=== PATIENT | male | born 1945 | race Caucasian/White ===

== ENCOUNTER 2019-10-16 11:28 | Inpatient (IN) | payer OTHER, MEDICARE ==
[2019-10-16 11:43] LABS: ABSOLUTE BASOPHILS # (AUTO) 0.1 10^3/uL (0.0-0.2); ABSOLUTE EOSINOPHILS # (AUTO) 0.1 10^3/uL (0.0-0.6); ABSOLUTE LYMPHOCYTES (AUTO) 1.6 10^3/uL (0.5-4.7); ABSOLUTE MONOCYTES (AUTO) 1.4 10^3/uL (0.1-1.4); ABSOLUTE NEUT (AUTO) 8.2 10^3/uL (1.7-8.2); BASOPHILS % (AUTO) 0.5 % (0-2); EOSINOPHILS % (AUTO) 0.7 % (0-6); HEMATOCRIT 37.5 % (37.9-51.0); HEMOGLOBIN 12.2 g/dL (13.5-17.0); LYMPHOCYTES % (AUTO) 14.3 % (13-45); MEAN CORPUSCULAR HEMOGLOBIN 30.3 pg (27.0-33.4); MEAN CORPUSCULAR HGB CONC 32.5 g/dL (32.0-36.0); MEAN CORPUSCULAR VOLUME 93 fl (80-97); MONOCYTES % (AUTO) 12.1 % (3-13); PLATELET COUNT 225 10^3/uL (150-450); RED BLOOD COUNT 4.03 10^6/uL (4.35-5.55); SEGMENTED NEUTROPHILS % (AUTO) 72.4 % (42-78); TOTAL CELLS COUNTED % (AUTO) 100 %; WHITE BLOOD COUNT 11.4 10^3/uL (4.0-10.5)
[2019-10-16 12:05] LABS: ALBUMIN 3.8 g/dL (3.5-5.0); ALKALINE PHOSPHATASE 57 U/L (38-126); ANION GAP 8 (5-19); ASPARTATE AMINO TRANSFERASE 27 U/L (17-59); BILIRUBIN,DIRECT 0.1 mg/dL (0.0-0.4); BILIRUBIN,TOTAL 1.1 mg/dL (0.2-1.3); BLOOD UREA NITROGEN 22 mg/dL (7-20); CALCIUM 8.9 mg/dL (8.4-10.2); CARBON DIOXIDE 30 mmol/L (22-30); CHLORIDE 104 mmol/L (98-107); GLUCOSE 113 mg/dL (75-110); TOTAL PROTEIN 6.5 g/dL (6.3-8.2)
--- NOTE | 2019-10-16 12:17 | RADIOLOGY REPORT (SQ) ---
EXAM DESCRIPTION: CHEST SINGLE VIEW COMPLETED DATE/TIME: 10/16/2019 12:05 pm REASON FOR STUDY: shortness of breath COMPARISON: None. NUMBER OF VIEWS: One view. TECHNIQUE: Single frontal radiographic view of the chest acquired. LIMITATIONS: None. FINDINGS: LUNGS AND PLEURA: Coarse parenchymal markings throughout the bibasilar lung deleon. The a ppearance is potentially chronic and related to scar/ fibrosis. Correlate with clinical history. Th is is not a typical appearance for interstitial edema. MEDIASTINUM AND HILAR STRUCTURES: No masses. Contour normal. HEART AND VASCULAR STRUCTURES: Heart size looks normal. Slight prominence of the central pulmonary v ascularity. BONES: No acute findings. HARDWARE: None in the chest. OTHER: No other significant finding. IMPRESSION: 1. Chronic interspace crash that interstitial basilar changes may be chronic. Doubt interstitial prerna ma, although there is mild central vascular congestion additionally noted. TECHNICAL DOCUMENTATION: JOB ID: [id number] [employer]- All Rights Reserved Reading location - IP/workstation name: [email or web address]
[2019-10-16 13:41] LABS: CREATINE KINASE 51 U/L (55-170)
--- NOTE | 2019-10-16 14:21 | ER Document Report ---
Entered by EVANGELINA WILSON SCRIBE 10/16/19 1334 Acting as scribe for:VLADISLAV ARREGUIN MD ED Respiratory Problem - General Chief Complaint: Shortness Of Breath Stated Complaint: SHORTNESS OF BREATH Time Seen by Provider: 10/16/19 13:17 Primary Care Provider: YOSI CACERES PA-C [Primary Care Provider] - Follow up as needed Mode of Arrival: Ambulatory Information source: Patient Notes: This 74 year old male patient presents to the emergency department today with complaints of shortness of breath. Patient states that his shortness of breath occurred abruptly a few days ago when he was in the shower. Patient states since that day his shortness of breath has become worse, stating that now with any exertion he becomes short of breath and his shortness of breath becomes manageable if he remains at rest. Patient uses 2 L nasal cannula at bedtime. The patient's medications are metoprolol, pravastatin, indapamide, citalopram, allopurinol, Xarelto, Trelegy and albuterol. He ran out of his indapamide several days ago. His most recent medication shipment from the [place] did not include his indapamide. He has not been to the [facility] clinic to correct this problem. TRAVEL OUTSIDE OF THE [place] IN LAST 30 DAYS: No - Related Data Allergies/Adverse Reactions: No Known Allergies Allergy (Verified 10/16/19 14:10) Past Medical History - General Information source: Patient - Social History Smoking Status: Unknown if Ever Smoked Cigarette use (# per day): No Frequency of alcohol use: None Drug Abuse: None Lives with: Family Family History: Reviewed & Not Pertinent Patient has suicidal ideation: No Patient has homicidal ideation: No - Past Medical History Cardiac Medical History: Reports: Hx Atrial Fibrillation, Hx Hypercholesterolemia, Hx Hypertension Pulmonary Medical History: Reports: Hx COPD Surgical Hx: Negative Review of Systems - Review of Systems Constitutional: No symptoms reported EENT: No symptoms reported Cardiovascular: No symptoms reported Respiratory: See HPI, Short of breath Gastrointestinal: No symptoms reported Genitourinary: No symptoms reported Male Genitourinary: No symptoms reported Musculoskeletal: No symptoms reported Skin: No symptoms reported Hematologic/Lymphatic: No symptoms reported Neurological/Psychological: No symptoms reported -: Yes All other systems reviewed and negative Physical Exam - Vital signs Vitals: Pulse Ox 96 10/16/19 11:41 Interpretation: Normal - General General appearance: Appears well, Alert - HEENT Head: Normocephalic, Atraumatic Eyes: Normal Pupils: PERRL - Respiratory Respiratory status: Respiratory distress Breath sounds: Other - coarse breath sounds bilaterally - Cardiovascular Rhythm: Regular Heart sounds: Normal auscultation Murmur: No - Abdominal Inspection: Normal Distension: No distension Bowel sounds: Normal Tenderness: Nontender Organomegaly: No organomegaly - Back Back: Normal, Nontender - Extremities General upper extremity: Normal inspection, Normal ROM. No: Edema General lower extremity: Normal inspection, Normal ROM. No: Edema - Neurological Neuro grossly intact: Yes Cognition: Normal Orientation: AAOx4 Candace Coma Scale Eye Opening: Spontaneous Candace Coma Scale Verbal: Oriented Candace Coma Scale Motor: Obeys Commands Candace Coma Scale Total: 15 Speech: Normal Sensory: Normal - Psychological Associated symptoms: Normal affect, Normal mood - Skin Skin Temperature: Warm Skin Moisture: Dry Skin Color: Normal Course - Re-evaluation Re-evalutation: 10/16/19 17:44 At this point the patient has urinated 600 mL's. He is still somewhat dyspneic. His oxygen is on 3 L, and his O2 sat dropped to 90% with him trying to reposition himself on the stretcher. His heart rate also increased to 1 30-1 35 with minimal exertion. He is in atrial fibrillation. - Vital Signs Vital signs: Temp Pulse Resp BP Pulse Ox 98.3 F 15 128/85 H 99 10/16/19 11:59 10/16/19 14:01 10/16/19 14:01 10/16/19 14:01 - Laboratory Result Diagrams: 10/16/19 11:00 10/16/19 11:00 Laboratory results interpreted by me: 10/16/19 10/16/19 10/16/19 11:00 11:00 11:00 WBC 11.4 H RBC 4.03 L Hgb 12.2 L Hct 37.5 L RDW 15.0 H D-Dimer BUN 22 H Glucose 113 H Creatine Kinase 51 L NT-Pro-B Natriuret Pep Urine Protein Urine Ketones Urine Urobilinogen Urine Ascorbic Acid 10/16/19 10/16/19 10/16/19 11:00 11:00 15:10 WBC RBC Hgb Hct RDW D-Dimer 0.98 H BUN Glucose Creatine Kinase NT-Pro-B Natriuret Pep 4370 H Urine Protein 30 H Urine Ketones TRACE H Urine Urobilinogen 2.0 H Urine Ascorbic Acid 40 H - Diagnostic Test Radiology reviewed: Image reviewed, Reports reviewed - CTA chest shows chronic lung changes with COPD and scarring. Superimposed congestive heart failure with small effusions with contrast refluxing into the upper abdominal veins suggesting right heart dysfunction. - EKG Interpretation by Me EKG shows normal: [place], Intervals, QRS Complexes. abnormal: ST-T Waves - Nonspecific anterior T abnormalities Rate: Normal - 90 Rhythm: A.Fib Voltage: Decreased voltage - Consults Dr. Rinaldi Time consulted: 17:55 Consulted provider: will come to ER Critical Care Note - Critical Care Note Total time excluding time spent on procedures (mins): 35 Discharge - Discharge Clinical Impression: Chronic atrial fibrillation, unspecified, Has run out of medications Congestive heart failure Qualifiers: Heart failure type: unspecified Heart failure chronicity: acute Qualified Code(s): I50.9 - Heart failure, unspecified COPD (chronic obstructive pulmonary disease) Qualifiers: COPD type: unspecified COPD Qualified Code(s): J44.9 - Chronic obstructive pulmonary disease, unspecified Condition: Good Disposition: ADMITTED INPATIENT Admitting Provider: [facility] (Hospitalist) Unit Admitted: Telemetry Referrals: YOSI CACERES PA-C [Primary Care Provider] - Follow up as needed Scribe Attestation: 10/16/19 18:00 I personally performed the services described in the documentation, reviewed and edited the documentation which was dictated to the scribe in my presence, and it accurately records my words and actions. I personally performed the services described in the documentation, reviewed and edited the documentation which was dictated to the scribe in my presence, and it accurately records my words and actions.
[2019-10-16 15:37] LABS: APPEARANCE,URINE SLIGHTLY-CLOUDY; BILIRUBIN,URINE NEGATIVE (NEGATIVE); COLOR,URINE AMBER; GLUCOSE, URINE NEGATIVE (NEGATIVE); KETONES,URINE TRACE mg/dL (NEGATIVE); LEUKOCYTE ESTERASE,URINE NEGATIVE (NEGATIVE); NITRITE,URINE NEGATIVE (NEGATIVE); PROTEIN,URINE 30 mg/dL (NEGATIVE); URINE SPECIFIC GRAVITY 1.031
--- NOTE | 2019-10-16 16:07 | RADIOLOGY REPORT (SQ) ---
EXAM DESCRIPTION: CTA CHEST COMPLETED DATE/TIME: 10/16/2019 3:55 pm REASON FOR STUDY: Dyspnea, elevated d-dimer COMPARISON: Portable radiograph from earlier. TECHNIQUE: CT scan of the chest performed using helical scanning technique with dynamic intravenous contrast injection. Images reviewed with lung, soft tissue and bone windows. Reconstructed coronal and sagittal MPR images reviewed. Additional 3 dimensional post-processing performed to develop Maximal Intensity Projection images (AZ P). All images stored on PACS. All CT scanners at this facility use dose modulation, iterative reconstruction, and/or weight based d osing when appropriate to reduce radiation dose to as low as reasonably achievable (ALARA). [facility]: Dose Right [facility]: CareDose [facility]: Dose Right [facility]: Teradose 4D [facility]: Preventes.fr CONTRAST TYPE AND DOSE: contrast/concentration: Isovue 350.00 mg/ml; Total Contrast Delivered: 65.0 ml; Total Saline Delivered: 80.0 ml Contrast bolus optimized for the pulmonary arteries. Not diagnostic for the aorta. RENAL FUNCTION: GFR > 60. RADIATION DOSE: CT Rad equipment meets quality standard of care and radiation dose reduction techniq ues were employed. CTDIvol: 20.5 - 26.4 mGy. DLP: 771 mGy-cm. . LIMITATIONS: None. 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 Bilateral small simple appear ing pleural effusions, these were not evident on single-view portable chest. AORTA AND GREAT VESSELS: Sub optimal assessment of the aorta. No gross aneurysm. HEART: No pericardial effusion. Heavy coronary calcification. PULMONARY ARTERIES: No emboli visualized in the main pulmonary arteries or the segmental branches. HILAR AND MEDIASTINAL STRUCTURES: Small nodes without enlargement. HARDWARE: None in the chest. UPPER ABDOMEN: Slight reflux of contrast into hepatic veins and IVC suggestive of right heart dysfunc tion. THYROID AND OTHER SOFT TISSUES: No masses. No adenopathy. BONES: No acute or significant finding. 3D MIPS: Confirm above findings. OTHER: No other significant finding. IMPRESSION: 1. No pulmonary embolus. 2. Chronic lung changes including COPD and scarring. 3. Superimposed congestive failure. Small effusions with contrast refluxing into the upper abdominal veins. COMMENT: Quality ID # [id number]: Final reports with documentation of one or more dose reduction techniques (e.g., Automated exposure control, adjustment of the mA and/or kV according to patient size, use of iterative reconstruction technique) TECHNICAL DOCUMENTATION: JOB ID: [id number] 2010 [employer]- All Rights Reserved Reading location - IP/workstation name: [email or web address]
[2019-10-16] MEDS ORDERED: FUROSEMIDE INJ/PF 40 MG/4 ML SDV IV ONE (16:28)
[2019-10-16] MEDS ORDERED: IPRATROPIUM/ALBUTEROL 0.5-2.5 MG/3 ML AMPUL NEB ONE (16:28)
--- NOTE | 2019-10-16 18:03 | EKG REPORT ---
SEVERITY:- ABNORMAL ECG - ATRIAL FIBRILLATION WITH RAPID V-RATE PAIRED VENTRICULAR PREMATURE COMPLEXES LOW VOLTAGE IN FRONTAL LEADS NONSPECIFIC T ABNORMALITIES, ANTERIOR LEADS : Confirmed by: Js Caicedo MD 16-Oct-2019 18:03:01
[2019-10-16] MEDS ORDERED: METOPROLOL TARTRATE PF/INJ 5 MG/5 ML SDV IV ONE (18:33)
[2019-10-16] MEDS ORDERED: METOPROLOL TARTRATE PF/INJ 5 MG/5 ML SDV IV PRN (18:33)
[2019-10-16] MEDS ORDERED: METOPROLOL TARTRATE 25 MG TABLET PO ONE (18:35)
[2019-10-16] MEDS ORDERED: LEVALBUTEROL HCL NEB 0.63 MG/3 ML AMPUL NEB PRN (18:40)
--- NOTE | 2019-10-16 18:55 | PDOC H&P ---
History of Present Illness Admission Date/PCP: 10/16/19 18:07 YOSI CACERES PA-C Patient complains of: Progressive dyspnea on exertion History of Present Illness: RENETTA ANNE is a 74 year old male with a History of COPD on nocturnal 2 L nasal cannula, atrial fibrillation, hypertension, hyperlipidemia, gout, who presents to the hospital with complaints of progressive shortness of breath for the past several days. Symptoms started about 3 days ago. Patient's exercise tolerance has reduced to in between rooms in his apartment. Patient denies any swelling in his lower extremities. He does admit to orthopnea. Denies PND. Denies fever chills or any recent upper respiratory tract infection. He denies noticing any wheezing. Patient did states that he was taking indapamide which he ran out of. Patient denies any prior history of congestive heart failure. Also denies any complaints of chest pain. Typically uses oxygen only nocturnally but noted to be hypoxic on 2 L in the ER. Past Medical History Cardiac Medical History: Reports: Atrial Fibrillation, Hyperlipidema, Hypertension Pulmonary Medical History: Reports: Chronic Obstructive Pulmonary Disease (COPD) Past Surgical History Past Surgical History: Reports: Other Social History Information Source: Patient Lives with: Family Smoking Status: Former Smoker Frequency of Alcohol Use: None Hx Recreational Drug Use: No Hx Prescription Drug Abuse: No - Advance Directive Resuscitation Status: Do Not Resuscitate - DNR/DNI per patient Family History Family History: COPD Parental Family History Reviewed: Yes Children Family History Reviewed: NA Sibling(s) Family History Reviewed.: Yes Medication/Allergy Allergies/Adverse Reactions: No Known Allergies Allergy (Verified 10/16/19 14:10) Review of Systems Constitutional: PRESENT: anorexia. ABSENT: chills, fatigue, fever(s) Eyes: ABSENT: visual disturbances Cardiovascular: PRESENT: dyspnea on exertion. ABSENT: chest pain Respiratory: PRESENT: dyspnea Gastrointestinal: ABSENT: abdominal pain, nausea, vomiting Genitourinary: ABSENT: dysuria Integumentary: ABSENT: diaphoresis Neurological: ABSENT: confusion Psychiatric: ABSENT: anxiety Endocrine: ABSENT: polyuria Allergic/Immunologic: ABSENT: seasonal rhinorrhea Physical Exam Vital Signs: Temp Pulse Resp BP Pulse Ox 98.3 F 15 128/85 H 99 10/16/19 11:59 10/16/19 14:01 10/16/19 14:01 10/16/19 14:01 Intake & Output 10/15/19 10/16/19 10/17/19 06:59 06:59 06:59 Output Total 600 Balance -600 Weight 91.2 kg General appearance: PRESENT: no acute distress, cooperative Head exam: PRESENT: normocephalic Mouth exam: PRESENT: neck supple Neck exam: PRESENT: JVD Respiratory exam: PRESENT: decreased breath sounds - at lung base, symmetrical, unlabored, wheezes - Mild. ABSENT: tachypnea Cardiovascular exam: PRESENT: irregular rhythm, +S1, +S2, tachycardia GI/Abdominal exam: PRESENT: normal bowel sounds, soft. ABSENT: rebound, rigid, tenderness Extremities exam: PRESENT: pedal edema - Trace pedal edema Musculoskeletal exam: PRESENT: ambulatory Neurological exam: PRESENT: alert, awake, oriented to person, oriented to place, oriented to time, oriented to situation Psychiatric exam: ABSENT: agitated, anxious Results Laboratory Results: 10/16/19 11:00 10/16/19 11:00 10/16/19 10/16/19 10/16/19 11:00 11:00 15:10 WBC 11.4 H RBC 4.03 L Hgb 12.2 L Hct 37.5 L MCV 93 MCH 30.3 MCHC 32.5 RDW 15.0 H Plt Count 225 Seg Neutrophils % 72.4 Sodium 142.3 Potassium 4.0 Chloride 104 Carbon Dioxide 30 Anion Gap 8 BUN 22 H Creatinine 0.71 Est GFR ( Amer) > 60 Glucose 113 H Calcium 8.9 Total Bilirubin 1.1 AST 27 Alkaline Phosphatase 57 Total Protein 6.5 Albumin 3.8 Urine Color JESS Urine Appearance SLIGHTLY-CLOUDY Urine pH 5.0 Ur Specific Hooper 1.031 Urine Protein 30 H Urine Glucose (UA) NEGATIVE Urine Ketones TRACE H Urine Blood NEGATIVE Urine Nitrite NEGATIVE Ur Leukocyte Esterase NEGATIVE Urine WBC (Auto) 4 Urine RBC (Auto) 1 10/16/19 10/16/19 10/16/19 11:00 11:00 11:00 Creatine Kinase 51 L Troponin I < 0.012 NT-Pro-B Natriuret Pep 4370 H Impressions: Chest X-Ray 10/16/19 11:30 IMPRESSION: 1. Chronic interspace crash that interstitial basilar changes may be chronic. Doubt interstitial edema, although there is mild central vascular congestion additionally noted. Chest/Abdomen CTA 10/16/19 14:22 IMPRESSION: 1. No pulmonary embolus. 2. Chronic lung changes including COPD and scarring. 3. Superimposed congestive failure. Small effusions with contrast refluxing into the upper abdominal veins. Assessment and Plan - Diagnosis (1) Acute congestive heart failure Qualifiers: Heart failure type: right-sided Qualified Code(s): I50.811 - Acute right heart failure Is this a current diagnosis for this admission?: Yes Plan: New diagnosis of acute congestive heart failure. Suspect right-sided failure which was also noted on CT findings. CTA also shows bilateral effusions. Diuresis with Lasix 40 mg IV twice daily. Check echocardiogram. Strict I's and O's and fluid restriction. (2) Chronic atrial fibrillation with rapid ventricular response Is this a current diagnosis for this admission?: Yes Plan: We will give Lopressor IV and p.o. right now given elevated heart rate. Will be cautious with the beta-blockers given his right failure. Continue Xarelto. Patient states that he takes Lopressor 10 mg 3 times a day at home. (3) COPD (chronic obstructive pulmonary disease) Qualifiers: COPD type: unspecified COPD Qualified Code(s): J44.9 - Chronic obstructive pulmonary disease, unspecified Is this a current diagnosis for this admission?: Yes Plan: Currently not in exacerbation but does have mild wheezing. Will give nebulizer treatments. Continue Trelegy. (4) Obesity (BMI 30.0-34.9) Is this a current diagnosis for this admission?: Yes - Time Time Spent with patient: 35 or more minutes
[2019-10-16] MEDS ORDERED: FLUTICASONE/UMECLIDIN/VILANTER 100-62.5-25 MCG/DOSE IH ONE (19:30)
[2019-10-16] MEDS ORDERED: RIVAROXABAN 10 MG TABLET PO ONE (19:30)
[2019-10-16] MEDS: LEVALBUTEROL HCL NEB 1.25 MG/3 ML AMPUL NEB SCH (20:39)
[2019-10-16] MEDS: SIMVASTATIN 40 MG TABLET PO SCH (21:40)
[2019-10-16] MEDS: METOPROLOL TARTRATE 25 MG TABLET PO SCH (21:41)
[2019-10-16] MEDS: POTASSIUM CHLORIDE 10 MEQ TABLET.ER PO SCH (21:41)
[2019-10-17 05:23] LABS: ABSOLUTE BASOPHILS # (AUTO) 0.1 10^3/uL (0.0-0.2); ABSOLUTE EOSINOPHILS # (AUTO) 0.3 10^3/uL (0.0-0.6); ABSOLUTE LYMPHOCYTES (AUTO) 1.7 10^3/uL (0.5-4.7); ABSOLUTE MONOCYTES (AUTO) 1.1 10^3/uL (0.1-1.4); ABSOLUTE NEUT (AUTO) 5.5 10^3/uL (1.7-8.2); BASOPHILS % (AUTO) 0.7 % (0-2); EOSINOPHILS % (AUTO) 3.7 % (0-6); HEMATOCRIT 35.7 % (37.9-51.0); HEMOGLOBIN 11.7 g/dL (13.5-17.0); LYMPHOCYTES % (AUTO) 19.3 % (13-45); MEAN CORPUSCULAR HEMOGLOBIN 30.5 pg (27.0-33.4); MEAN CORPUSCULAR HGB CONC 32.9 g/dL (32.0-36.0); MEAN CORPUSCULAR VOLUME 93 fl (80-97); MONOCYTES % (AUTO) 13.2 % (3-13); PLATELET COUNT 203 10^3/uL (150-450); RED BLOOD COUNT 3.85 10^6/uL (4.35-5.55); RED CELL DISTRIBUTION WIDTH 15.1 % (11.5-14.0); SEGMENTED NEUTROPHILS % (AUTO) 63.1 % (42-78); TOTAL CELLS COUNTED % (AUTO) 100 %; WHITE BLOOD COUNT 8.7 10^3/uL (4.0-10.5)
[2019-10-17] MEDS: METOPROLOL TARTRATE 25 MG TABLET PO SCH ×3 (05:33→21:33)
[2019-10-17] MEDS: LEVALBUTEROL HCL NEB 1.25 MG/3 ML AMPUL NEB SCH ×3 (07:30→20:23)
[2019-10-17] MEDS: ALLOPURINOL 300 MG TABLET PO SCH (10:42)
[2019-10-17] MEDS: POTASSIUM CHLORIDE 10 MEQ TABLET.ER PO SCH ×2 (10:42→21:33)
[2019-10-17] MEDS: CITALOPRAM HYDROBROMIDE 20 MG TABLET PO SCH (10:42)
[2019-10-17] MEDS: FUROSEMIDE INJ/PF 40 MG/4 ML SDV IV SCH ×2 (10:43→18:41)
[2019-10-17] MEDS: FLUTICASONE/UMECLIDIN/VILANTER 100-62.5-25 MCG/DOSE IH SCH (10:50)
--- NOTE | 2019-10-17 15:45 | CDI QUERY ---
<OLGA BARAHONA - Last Filed: 10/17/19 15:44> CDI Query CDI Review: Dear CARMEN, To better reflect your patients severity of illness, morbidity, and resource utilization Please LINK any condition to present on admission, if applicable. The terms probable, suspected, likely, possible or still to be ruled out may be used. If you agree, please add to the Progress Notes and Discharge Summary Query Clinical indicators PLEASE SPECIFY TYPE AFIB: PERSISTENT PAROXYSMAL PERMANENT Chronic atrial fibrillation with rapid ventricular response Is this a current diagnosis for this admission?: Yes Plan: We will give Lopressor IV and p.o. right now given elevated heart rate. Will be cautious with the beta-blockers given his right failure. Continue Xarelto. Patient states that he takes Lopressor 10 mg 3 times a day at home. Thank you, OLGA Clinical Documentation [facility] Office [phone] <NIHARIKA ARMANDO - Last Filed: 10/17/19 16:48> CDI Query Agree with Query: No - Undetermined. No way to tell if this patient's AFib is persistent, paroxysmal or permanent but I suspect persistent
--- NOTE | 2019-10-17 17:58 | PDOC PROGRESS REPORT ---
Subjective Progress Note for:: 10/17/19 Subjective:: Patient feels better today ambulated a little bit but his heart rate went up when he ambulated. Reason For Visit: RIGHT HEART FAILURE Physical Exam Vital Signs: Temp Pulse Resp BP Pulse Ox 97.7 F 91 16 109/73 97 10/17/19 16:09 10/17/19 16:09 10/17/19 16:09 10/17/19 16:09 10/17/19 16:09 Intake & Output 10/16/19 10/17/19 10/18/19 06:59 06:59 06:59 Intake Total 260 Output Total 1075 1350 Balance -1075 -1090 Weight 90.6 kg 90.6 kg General appearance: PRESENT: no acute distress, cooperative Neck exam: PRESENT: JVD Respiratory exam: PRESENT: symmetrical, unlabored. ABSENT: tachypnea, wheezes Cardiovascular exam: PRESENT: irregular rhythm, +S1, +S2, tachycardia Extremities exam: ABSENT: pedal edema Musculoskeletal exam: PRESENT: ambulatory Neurological exam: PRESENT: alert, awake, oriented to person, oriented to place, oriented to time, oriented to situation Psychiatric exam: PRESENT: appropriate affect Focused psych exam: ABSENT: pressured speech Results Laboratory Results: 10/17/19 04:36 10/16/19 11:00 10/17/19 10/17/19 04:36 04:36 WBC 8.7 RBC 3.85 L Hgb 11.7 L Hct 35.7 L MCV 93 MCH 30.5 MCHC 32.9 RDW 15.1 H Plt Count 203 Seg Neutrophils % 63.1 Magnesium 1.9 10/16/19 10/16/19 10/16/19 11:00 11:00 11:00 Creatine Kinase 51 L Troponin I < 0.012 NT-Pro-B Natriuret Pep 4370 H Impressions: Chest X-Ray 10/16/19 11:30 IMPRESSION: 1. Chronic interspace crash that interstitial basilar changes may be chronic. Doubt interstitial edema, although there is mild central vascular congestion additionally noted. Chest/Abdomen CTA 10/16/19 14:22 IMPRESSION: 1. No pulmonary embolus. 2. Chronic lung changes including COPD and scarring. 3. Superimposed congestive failure. Small effusions with contrast refluxing into the upper abdominal veins. Assessment and Plan - Diagnosis (1) Acute congestive heart failure Qualifiers: Heart failure type: right-sided Qualified Code(s): I50.811 - Acute right heart failure Is this a current diagnosis for this admission?: Yes Plan: New diagnosis of acute congestive heart failure. Suspect right-sided failure. Potentially from his COPD. CTA also shows bilateral effusions. Diuresis with Lasix 40 mg IV twice daily. Check echocardiogram. Strict I's and O's and fluid restriction. (2) Chronic atrial fibrillation with rapid ventricular response Is this a current diagnosis for this admission?: Yes Plan: We will give Lopressor IV and p.o. right now given elevated heart rate. Will be cautious about increasing beta-blockers given his right failure. Continue Xarelto. Patient states that he takes Lopressor 10 mg 3 times a day at home. (3) COPD (chronic obstructive pulmonary disease) Qualifiers: COPD type: unspecified COPD Qualified Code(s): J44.9 - Chronic obstructive pulmonary disease, unspecified Is this a current diagnosis for this admission?: Yes Plan: Currently not in exacerbation but does have mild wheezing. Will give nebulizer treatments. Continue Trelegy. (4) Obesity (BMI 30.0-34.9) Is this a current diagnosis for this admission?: Yes - Time Time Spent with patient: 15-24 minutes
--- NOTE | 2019-10-17 18:34 | EKG REPORT ---
SEVERITY:- ABNORMAL ECG - ATRIAL FIBRILLATION LOW VOLTAGE IN FRONTAL LEADS ABNORMAL T, CONSIDER ISCHEMIA, ANTERIOR LEADS PROLONGED QT INTERVAL : Confirmed by: Lilia Murguia 17-Oct-2019 18:32:55
[2019-10-17] MEDS: RIVAROXABAN 10 MG TABLET PO SCH (18:47)
[2019-10-17] MEDS: SIMVASTATIN 40 MG TABLET PO SCH (21:33)
[2019-10-18 05:23] LABS: ABSOLUTE BASOPHILS # (AUTO) 0.1 10^3/uL (0.0-0.2); ABSOLUTE EOSINOPHILS # (AUTO) 0.3 10^3/uL (0.0-0.6); ABSOLUTE LYMPHOCYTES (AUTO) 1.8 10^3/uL (0.5-4.7); ABSOLUTE NEUT (AUTO) 5.4 10^3/uL (1.7-8.2); BASOPHILS % (AUTO) 0.6 % (0-2); EOSINOPHILS % (AUTO) 3.8 % (0-6); HEMATOCRIT 34.8 % (37.9-51.0); HEMOGLOBIN 11.8 g/dL (13.5-17.0); LYMPHOCYTES % (AUTO) 21.2 % (13-45); MEAN CORPUSCULAR HEMOGLOBIN 30.9 pg (27.0-33.4); MEAN CORPUSCULAR HGB CONC 33.8 g/dL (32.0-36.0); MEAN CORPUSCULAR VOLUME 92 fl (80-97); MONOCYTES % (AUTO) 11.6 % (3-13); PLATELET COUNT 224 10^3/uL (150-450); RED CELL DISTRIBUTION WIDTH 14.7 % (11.5-14.0); SEGMENTED NEUTROPHILS % (AUTO) 62.8 % (42-78); TOTAL CELLS COUNTED % (AUTO) 100 %; WHITE BLOOD COUNT 8.5 10^3/uL (4.0-10.5)
[2019-10-18] MEDS: METOPROLOL TARTRATE 25 MG TABLET PO SCH ×3 (05:38→21:38)
[2019-10-18] MEDS: LEVALBUTEROL HCL NEB 1.25 MG/3 ML AMPUL NEB SCH ×3 (08:43→20:05)
[2019-10-18 09:07] LABS: ANION GAP 8 (5-19); BLOOD UREA NITROGEN 27 mg/dL (7-20); CALCIUM 8.5 mg/dL (8.4-10.2); CARBON DIOXIDE 34 mmol/L (22-30); CHLORIDE 99 mmol/L (98-107); GLUCOSE 98 mg/dL (75-110); POTASSIUM 3.8 mmol/L (3.6-5.0)
[2019-10-18] MEDS: FUROSEMIDE INJ/PF 40 MG/4 ML SDV IV SCH (09:28)
[2019-10-18] MEDS: CITALOPRAM HYDROBROMIDE 20 MG TABLET PO SCH (09:28)
[2019-10-18] MEDS: POTASSIUM CHLORIDE 10 MEQ TABLET.ER PO SCH ×2 (09:29→21:38)
[2019-10-18] MEDS: ALLOPURINOL 300 MG TABLET PO SCH (09:30)
[2019-10-18] MEDS: MAGNESIUM OXIDE 400 MG TABLET PO SCH ×2 (09:30→17:27)
[2019-10-18] MEDS: FLUTICASONE/UMECLIDIN/VILANTER 100-62.5-25 MCG/DOSE IH SCH (09:30)
--- NOTE | 2019-10-18 10:32 | XCELERA REPORT ---
[address] [address] Transthoracic Echocardiogram Report Name: RENETTA ANNE Age: 74 yrs Gender: Male : 1945 Patient Status: Inpatient Patient Location: [address] [place], [place] [id number] Study Date: 10/17/2019 12:27 PM Height: 67 in Weight: 201 lb BSA: 2.0 m2 Procedure: A complete two-dimensional transthoracic echocardiogram was performed (2D, M-mode, spectral and color flow Doppler). The study was technically adequate with some images being suboptimal in quality. Reason For Study: CHF. suspected rhf, Pulmonary Hypertension History: A FIB. Ordering Physician: NIHARIKA ARMANDO Performed By: Natalia Mcdonnell Interpretation Summary The patient is an atrial fibrillation with rapid ventricular response during this exam. Multiple endocardial segments not well visualized in multiple views. Low normal left ventricular ejection fraction 50 to 55% LV diastolic function could not be adequately assessed due to atrial fibrilation. Mildly dilated left atrium Moderate senile (calcific) aortic stenosis with vmax - 3.06m/s; mg 20mmHg. DI is 0.26 Trivial aortic insufficiency Mild to moderate mitral regurgitation Mild tricuspid regurgitation with incomplete TR jet, unable to estimate RVSP Mild to moderate pulmonic insufficiency MMode/2D Measurements & Calculations RVDd: 3.8 cm LVIDd: 4.9 cm FS: 35.9 % Ao root diam: 2.8 cm IVSd: 1.00 cm LVIDs: 3.1 cm EDV(Teich): 112.7 ml Ao root area: 6.4 cm2 LVPWd: 0.98 cm ESV(Teich): 39.1 ml LA dimension: 5.0 cm EF(Teich): 65.3 % LVOT diam: 2.2 cm LVOT area: 3.8 cm2 Doppler Measurements & Calculations MV E max neel: MV P1/2t max neel: Ao V2 max: LV V1 max P.2 cm/sec 99.7 cm/sec 307.7 cm/sec 2.2 mmHg MV P1/2t: 53.6 msec Ao max PG: LV V1 mean PG: MVA(P1/2t): 4.1 cm2 37.9 mmHg 1.2 mmHg MV dec slope: Ao V2 mean: LV V1 max: 222.5 cm/sec 74.3 cm/sec 544.6 cm/sec2 Ao mean PG: LV V1 mean: MV dec time: 0.19 sec23.0 mmHg 50.8 cm/sec Ao V2 VTI: 70.9 cm LV V1 VTI: 15.2 cm AUSTIN(I,D): 0.81 cm2 AUSTIN(V,D): 0.91 cm2 SV(LVOT): 57.1 ml PA V2 max: PI end-d neel: TR max neel: 72.6 cm/sec 210.8 cm/sec 338.0 cm/sec PA max P.1 mmHg TR max P.7 mmHg MV P1/2t-pr_phl: 53.6 msec Left Ventricle The left ventricle is normal in size. There is mild concentric left ventricular hypertrophy. Left ventricular systolic function is low normal. The Ejection Fraction estimate is 50-55%. patient in rapid afib with rled-bz-[id number] variation; interpretation of LVEF could be improved with echo contrast- enhancing agent as well as changing to 3 second clips for functional assessment. LV diastolic function could not be adequately assessed due to atrial fibrilation. Regional wall motion abnormalities cannot be excluded due to limited visualization. Right Ventricle RV is poorly seen. There is no RV functional assessment or measurements in this exam. Atria Borderline right atrial enlargement. not measured. The left atrium is mildly dilated. no UDAY measured. The interatrial septum is difficult to see, but appears to be grossly normal. Mitral Valve The mitral valve is normal in structure and function. There is mild mitral annular calcification. There is mild mitral leaflet calcification. There is no evidence of mitral valve prolapse. There is a mild to moderate amount of mitral regurgitation. Aortic Valve The aortic valve is moderately calcified. There is moderate aortic stenosis. Moderate senile (calcific) aortic stenosis with vmax - 3.06m/s; mg 20mmHg. DI is 0.26. There is a trace amount of aortic regurgitation. Tricuspid Valve There is a mild amount of tricuspid regurgitation. Tricuspid regurgitation jet envelope not well defined to measure RV systolic pressure accurately. Pulmonic Valve There is no pulmonic valvular stenosis. There is a mild to moderate amount of pulmonic regurgitation. Great Vessels The aortic root is normal size. Not well seen. RA pressure est 3mmHg: IVC is normal size with greater than 50% respirophasic variation. Effusions There is no pericardial effusion. : NIHARIKA ARMANDO Seth J
--- NOTE | 2019-10-18 14:43 | PDOC PROGRESS REPORT ---
Subjective Progress Note for:: 10/18/19 Subjective:: Patient feels that his breathing has improved however still tachycardic whenever he ambulates. Denies any chest pain at this time. Hoping to go home soon. Reason For Visit: RIGHT HEART FAILURE Physical Exam Vital Signs: Temp Pulse Resp BP Pulse Ox 97.7 F 119 H 17 116/76 96 10/18/19 11:26 10/18/19 14:00 10/18/19 13:52 10/18/19 11:26 10/18/19 13:52 Intake & Output 10/17/19 10/18/19 10/19/19 06:59 06:59 06:59 Intake Total 260 480 Output Total 1075 1950 1200 Balance -1025 -8940 -720 Weight 90.6 kg 89.9 kg General appearance: PRESENT: no acute distress, cooperative Neck exam: ABSENT: JVD Respiratory exam: PRESENT: clear to auscultation mark, unlabored. ABSENT: tachypnea, wheezes Cardiovascular exam: PRESENT: irregular rhythm, +S1, +S2, tachycardia GI/Abdominal exam: PRESENT: soft. ABSENT: rebound, rigid, tenderness Neurological exam: PRESENT: alert, awake, oriented to person, oriented to place, oriented to time Results Laboratory Results: 10/18/19 04:23 10/18/19 04:23 10/18/19 10/18/19 10/18/19 04:23 04:23 04:23 WBC 8.5 RBC 3.80 L Hgb 11.8 L Hct 34.8 L MCV 92 MCH 30.9 MCHC 33.8 RDW 14.7 H Plt Count 224 Seg Neutrophils % 62.8 Sodium 141.3 Potassium 3.8 Chloride 99 Carbon Dioxide 34 H Anion Gap 8 BUN 27 H Creatinine 0.90 Est GFR ( Amer) > 60 Glucose 98 Calcium 8.5 Magnesium 1.8 10/16/19 10/16/19 10/16/19 11:00 11:00 11:00 Creatine Kinase 51 L Troponin I < 0.012 NT-Pro-B Natriuret Pep 4370 H Impressions: Chest X-Ray 10/16/19 11:30 IMPRESSION: 1. Chronic interspace crash that interstitial basilar changes may be chronic. Doubt interstitial edema, although there is mild central vascular congestion additionally noted. Chest/Abdomen CTA 10/16/19 14:22 IMPRESSION: 1. No pulmonary embolus. 2. Chronic lung changes including COPD and scarring. 3. Superimposed congestive failure. Small effusions with contrast refluxing into the upper abdominal veins. Assessment and Plan - Diagnosis (1) Acute congestive heart failure Qualifiers: Heart failure type: diastolic Qualified Code(s): I50.31 - Acute diastolic (congestive) heart failure Is this a current diagnosis for this admission?: Yes Plan: New diagnosis of acute congestive heart failure. CTA also shows bilateral effusions. He has been diuresing well with Lasix 40 mg IV twice daily. Received only one IV dose today. Will switch to p.o. Lasix 40 mg daily tomorrow. Echo showing EF of 50 to 55% with mild LVH, mild to moderate MR, mild to moderate pulmonic insufficiency. Strict I's and O's and fluid restriction. (2) Chronic atrial fibrillation with rapid ventricular response Is this a current diagnosis for this admission?: Yes Plan: Heart rate still uncontrolled today. Continue Lopressor 12.5 mg tid. Will avoid uptitrating Lopressor dose given advanced COPD. Instead, I will add diltiazem IR 30 mg every 6 hours with plan to switch to extended release tomorrow if adequately controlled. Continue Xarelto. If heart rate is better controlled tomorrow, patient can be discharged with cardiology and pulmonology follow-ups. (3) COPD (chronic obstructive pulmonary disease) Qualifiers: COPD type: unspecified COPD Qualified Code(s): J44.9 - Chronic obstructive pulmonary disease, unspecified Is this a current diagnosis for this admission?: Yes Plan: Currently not in exacerbation but does have mild wheezing. Will give nebulizer treatments. Continue Trelegy. (4) Obesity (BMI 30.0-34.9) Is this a current diagnosis for this admission?: Yes - Time Time Spent with patient: 15-24 minutes
[2019-10-18] MEDS: DILTIAZEM HCL 30 MG TABLET PO SCH ×2 (14:59→21:37)
[2019-10-18] MEDS: RIVAROXABAN 10 MG TABLET PO SCH (17:26)
[2019-10-18] MEDS: SIMVASTATIN 40 MG TABLET PO SCH (21:38)
[2019-10-19] MEDS: DILTIAZEM HCL 30 MG TABLET PO SCH ×2 (02:53→09:25)
[2019-10-19 05:16] LABS: ANION GAP 7 (5-19); BLOOD UREA NITROGEN 32 mg/dL (7-20); CALCIUM 8.2 mg/dL (8.4-10.2); CARBON DIOXIDE 32 mmol/L (22-30); CHLORIDE 102 mmol/L (98-107); GLUCOSE 95 mg/dL (75-110); POTASSIUM 3.7 mmol/L (3.6-5.0)
[2019-10-19] MEDS: METOPROLOL TARTRATE 25 MG TABLET PO SCH (06:05)
[2019-10-19] MEDS: LEVALBUTEROL HCL NEB 1.25 MG/3 ML AMPUL NEB SCH (07:48)
[2019-10-19 08:35] VITALS: BP 115/68
[2019-10-19] MEDS: CITALOPRAM HYDROBROMIDE 20 MG TABLET PO SCH (09:25)
[2019-10-19] MEDS: MAGNESIUM OXIDE 400 MG TABLET PO SCH (09:25)
[2019-10-19] MEDS: ALLOPURINOL 300 MG TABLET PO SCH (09:25)
[2019-10-19] MEDS: POTASSIUM CHLORIDE 10 MEQ TABLET.ER PO SCH (09:25)
[2019-10-19] MEDS: FLUTICASONE/UMECLIDIN/VILANTER 100-62.5-25 MCG/DOSE IH SCH (09:26)
[2019-10-19] MEDS ORDERED: FUROSEMIDE 40 MG TABLET PO SCH (10:00)
--- NOTE | 2019-10-19 10:01 | PDOC DISCHARGE SUMMARY ---
Impression - Admit/DC Date/PCP Admission Date/Primary Care Provider: 10/16/19 18:07 YOSI CACERES PA-C Discharge Date: 10/19/19 - Discharge Diagnosis (1) Diastolic CHF Is this a current diagnosis for this admission?: Yes (2) Chronic respiratory failure with hypoxia Is this a current diagnosis for this admission?: Yes (3) Acute congestive heart failure Is this a current diagnosis for this admission?: Yes (4) COPD (chronic obstructive pulmonary disease) Is this a current diagnosis for this admission?: Yes (5) Chronic atrial fibrillation with rapid ventricular response Is this a current diagnosis for this admission?: Yes (6) Obesity (BMI 30.0-34.9) Is this a current diagnosis for this admission?: Yes - Additional Information Resuscitation Status: Do Not Resuscitate - DNR/DNI per patient Discharge Diet: Cardiac Discharge Activity: Activity As Tolerated Referrals: YOSI CACERES PA-C [Primary Care Provider] - 10/24/19 9:15 am Prescriptions: Diltiazem HCl [Cardizem Cd 120 mg Capsule] 1 cap.sr PO DAILY #30 cap.sr Furosemide [Lasix 40 mg Tablet] 40 mg PO DAILY #30 tablet Home Medications: Albuterol Sulfate [Albuterol Sulfate Hfa] 2 puff IH Q6HP PRN 10/17/19 Allopurinol [Zyloprim 300 mg Tablet] 300 mg PO QHS 10/17/19 Citalopram Hydrobromide [Citalopram HBr] 10 mg PO DAILY 10/17/19 Fluticasone/Umeclidin/Vilanter [Trelegy 100-62.5-25 Mcg Ellipta 14 Dose/Dpi] 1 each IH DAILY 10/17/19 Pravastatin Sodium 40 mg PO QHS 10/17/19 Rivaroxaban [Xarelto] 20 mg PO WSUPPER 10/17/19 Diltiazem HCl [Cardizem Cd 120 mg Capsule] 1 cap.sr PO DAILY #30 cap.sr 10/19/19 Furosemide [Lasix 40 mg Tablet] 40 mg PO DAILY #30 tablet 10/19/19 Metoprolol Tartrate [Lopressor] 25 mg PO BID #60 10/19/19 History of Present Illiness History of Present Illness: RENETTA ANNE is a 74 year old male patient was admitted with progressive difficulty breathing. He was found to be in congestive heart failure, acute apparently new diagnosis. He was admitted for further management Hospital Course Hospital Course: Patient was admitted with progressive difficulty breathing. He was found to be in congestive heart failure, acute apparently new diagnosis. He had associated pleural effusions. Patient was also treated for atrial fibrillation although this is chronic. He was in rapid ventricular response which controlled after he got his heart failure. Patient was on metoprolol and Cardizem has been added to his regimen. He will need further medication adjustment as outpatient. Patient has been placed on Lasix however will advise evaluation of the dose and adjustment as clinically warranted. We will also suggest evaluation for potassium replacement although his potassium is currently within normal. Pleural effusion thought to be secondary to heart failure. With his right-sided valvular insufficiencies patient likely has a right-sided heart failure. He does have history of COPD with chronic respiratory failure for which he is on nocturnal oxygen. Echocardiogram shows patient to be in atrial fibrillation with a rapid ventricle response during the exam. Ejection fraction was 50 to 55% with mild to moderate mitral, tricuspid pulmonary insufficiencies. Physical Exam Vital Signs: Temp Pulse Resp BP Pulse Ox 98.1 F 73 18 115/68 95 10/19/19 07:32 10/19/19 07:32 10/19/19 07:32 10/19/19 07:32 10/19/19 07:32 Intake & Output 10/18/19 10/19/19 10/20/19 06:59 06:59 06:59 Intake Total 260 840 Output Total 1950 1800 Balance -1690 -960 Weight 89.9 kg 90.4 kg General appearance: PRESENT: no acute distress, hard of hearing, well-developed Head exam: PRESENT: atraumatic, normocephalic Eye exam: PRESENT: conjunctiva pink, PERRLA. ABSENT: scleral icterus Mouth exam: PRESENT: tongue midline Neck exam: ABSENT: carotid bruit, JVD, lymphadenopathy, thyromegaly Respiratory exam: PRESENT: clear to auscultation mark. ABSENT: rales, rhonchi, wheezes Cardiovascular exam: PRESENT: irregular rhythm, +S1, +S2, systolic murmur. ABSENT: diastolic murmur, rubs Pulses: PRESENT: normal dorsalis pedis pul Vascular exam: PRESENT: normal capillary refill GI/Abdominal exam: PRESENT: normal bowel sounds, soft. ABSENT: distended, guarding, mass, organolmegaly, rebound, tenderness Rectal exam: PRESENT: deferred Extremities exam: PRESENT: full ROM. ABSENT: calf tenderness, clubbing, pedal edema Neurological exam: PRESENT: alert, awake, oriented to person, oriented to place, oriented to time, oriented to situation, CN II-XII grossly intact. ABSENT: motor sensory deficit Psychiatric exam: PRESENT: appropriate affect, normal mood. ABSENT: homicidal ideation, suicidal ideation Skin exam: PRESENT: dry, intact, warm. ABSENT: cyanosis, rash Results Laboratory Results: WBC 8.5 10^3/uL (4.0-10.5) 10/18/19 04:23 RBC 3.80 10^6/uL (4.35-5.55) L 10/18/19 04:23 Hgb 11.8 g/dL (13.5-17.0) L 10/18/19 04:23 Hct 34.8 % (37.9-51.0) L 10/18/19 04:23 MCV 92 fl (80-97) 10/18/19 04:23 MCH 30.9 pg (27.0-33.4) 10/18/19 04:23 MCHC 33.8 g/dL (32.0-36.0) 10/18/19 04:23 RDW 14.7 % (11.5-14.0) H 10/18/19 04:23 Plt Count 224 10^3/uL (150-450) 10/18/19 04:23 Lymph % (Auto) 21.2 % (13-45) 10/18/19 04:23 [place] % (Auto) 11.6 % (3-13) 10/18/19 04:23 Eos % (Auto) 3.8 % (0-6) 10/18/19 04:23 Baso % (Auto) 0.6 % (0-2) 10/18/19 04:23 Absolute Neuts (auto) 5.4 10^3/uL (1.7-8.2) 10/18/19 04:23 Absolute Lymphs (auto) 1.8 10^3/uL (0.5-4.7) 10/18/19 04:23 Absolute Monos (auto) 1.0 10^3/uL (0.1-1.4) 10/18/19 04:23 Absolute Eos (auto) 0.3 10^3/uL (0.0-0.6) 10/18/19 04:23 Absolute Basos (auto) 0.1 10^3/uL (0.0-0.2) 10/18/19 04:23 Seg Neutrophils % 62.8 % (42-78) 10/18/19 04:23 D-Dimer 0.98 ug/mL (0.00-0.50) H 10/16/19 11:00 Sodium 140.9 mmol/L (137-145) 10/19/19 03:58 Potassium 3.7 mmol/L (3.6-5.0) 10/19/19 03:58 Chloride 102 mmol/L (98-107) 10/19/19 03:58 Carbon Dioxide 32 mmol/L (22-30) H 10/19/19 03:58 Anion Gap 7 (5-19) 10/19/19 03:58 BUN 32 mg/dL (7-20) H 10/19/19 03:58 Creatinine 0.77 mg/dL (0.52-1.25) 10/19/19 03:58 Est GFR ( Amer) > 60 (>60) 10/19/19 03:58 Est GFR (MDRD) Non-Af > 60 (>60) 10/19/19 03:58 Glucose 95 mg/dL (75-110) 10/19/19 03:58 Calcium 8.2 mg/dL (8.4-10.2) L 10/19/19 03:58 Magnesium 2.0 mg/dL (1.6-2.3) 10/19/19 03:58 Total Bilirubin 1.1 mg/dL (0.2-1.3) 10/16/19 11:00 Direct Bilirubin 0.1 mg/dL (0.0-0.4) 10/16/19 11:00 Neonat Total Bilirubin Not Reportable 10/16/19 11:00 Neonat Direct Bilirubin Not Reportable 10/16/19 11:00 Neonat Indirect Bili Not Reportable 10/16/19 11:00 AST 27 U/L (17-59) 10/16/19 11:00 ALT 21 U/L (<50) 10/16/19 11:00 Alkaline Phosphatase 57 U/L (38-126) 10/16/19 11:00 Creatine Kinase 51 U/L (55-170) L 10/16/19 11:00 Troponin I < 0.012 ng/mL 10/16/19 11:00 NT-Pro-B Natriuret Pep 4370 pg/mL (<450) H 10/16/19 11:00 Total Protein 6.5 g/dL (6.3-8.2) 10/16/19 11:00 Albumin 3.8 g/dL (3.5-5.0) 10/16/19 11:00 Urine Color JESS 10/16/19 15:10 Urine Appearance SLIGHTLY-CLOUDY 10/16/19 15:10 Urine pH 5.0 (5.0-9.0) 10/16/19 15:10 Ur Specific [place] 1.031 10/16/19 15:10 Urine Protein 30 mg/dL (NEGATIVE) H 10/16/19 15:10 Urine Glucose (UA) NEGATIVE mg/dL (NEGATIVE) 10/16/19 15:10 Urine Ketones TRACE mg/dL (NEGATIVE) H 10/16/19 15:10 Urine Blood NEGATIVE (NEGATIVE) 10/16/19 15:10 Urine Nitrite NEGATIVE (NEGATIVE) 10/16/19 15:10 Urine Bilirubin NEGATIVE (NEGATIVE) 10/16/19 15:10 Urine Urobilinogen 2.0 mg/dL (<2.0) H 10/16/19 15:10 Ur Leukocyte Esterase NEGATIVE (NEGATIVE) 10/16/19 15:10 Urine WBC (Auto) 4 /HPF 10/16/19 15:10 Urine RBC (Auto) 1 /HPF 10/16/19 15:10 Squamous Epi Cells Auto 1 /HPF 10/16/19 15:10 Urine Mucus (Auto) MANY /LPF 10/16/19 15:10 Urine Ascorbic Acid 40 (NEGATIVE) H 10/16/19 15:10 10/16/19 10/16/19 11:00 11:00 Troponin I < 0.012 NT-Pro-B Natriuret Pep 4370 H EKG Comments: Atrial fibrillation with rapid ventricular response Impressions: Chest X-Ray 10/16/19 11:30 IMPRESSION: 1. Chronic interspace crash that interstitial basilar changes may be chronic. Doubt interstitial edema, although there is mild central vascular congestion additionally noted. Chest/Abdomen CTA 10/16/19 14:22 IMPRESSION: 1. No pulmonary embolus. 2. Chronic lung changes including COPD and scarring. 3. Superimposed congestive failure. Small effusions with contrast refluxing into the upper abdominal veins. Plan Health Concerns: Follow-up with PCP for medication management and adjustment of his medications as clinically indicated. Time Spent: Greater than 30 Minutes Stroke Is this a Stroke Patient?: No Acute Heart Failure - Is this a Heart Failure Patient?: Yes Documentation of LVEF assessment?: Yes LVEF < 40%?: No- if no continue to question #3 3. Anticoagulant therapy for permanect/persistent/paraoxysmal Afib or Aflutter: Yes Follow-up Appointment scheduled within 7 days?: Yes
== END 2019-10-19 11:30 | disposition home or self-care (01) | DRG 291 ==
LOC: ER 11:28 → EH 18:07 → 3N 19:33
PROVIDERS: ADMIT Internal Medicine; ATTEND Internal Medicine
DX: I11.0 Hypertensive heart disease with heart failure (principal); I50.31 Acute diastolic (congestive) heart failure; J96.11 Chronic respiratory failure with hypoxia; I48.20 Chronic atrial fibrillation, unspecified; J44.9 Chronic obstructive pulmonary disease, unspecified; E66.9 Obesity, unspecified; I08.1 Rheumatic disorders of both mitral and tricuspid valves; E78.5 Hyperlipidemia, unspecified; E78.00 Pure hypercholesterolemia, unspecified; Z66 Do not resuscitate; Z79.899 Other long term (current) drug therapy; Z79.01 Long term (current) use of anticoagulants; Z87.891 Personal history of nicotine dependence; Z91.14 Patient's other noncompliance with medication regimen
CPT/HCPCS: 36415; 71045; 71275; 80048; 80053; 81001; 82550; 83735; 83880; 84484; 85025; 85379; 93005; 93010; 93306; 94640; 96374; 99291; J1940; J3490; J7620